=== PATIENT | male | born 1980 | race Caucasian/White ===

== ENCOUNTER 2016-11-12 17:01 | Emergency (ER) | payer OTHER ==
[~2016-11-12] VITALS: Ht 180.3 cm; Wt 77.1 kg
[2016-11-12] MEDS ORDERED: LIDOCAINE 2% 20 ML (XYLOCAINE) VIAL INJ ONE (17:30)
[2016-11-12] MEDS ORDERED: BUPIVACAINE 0.5% 30 ML (SENSORCAINE) VIAL INJ ONE (17:30)
[2016-11-12] MEDS ORDERED: TETANUS,DIPTH,PERTUSS P/F (BOOSTRIX) 0.5 ML VIAL IM ONE (17:30)
--- NOTE | 2016-11-12 17:30 | ED General ---
General Chief Complaint: Laceration Stated Complaint: LACERATION ON L HAND Nursing Triage Note: DISTAL FINGER LACERATION FROM BANDSAW. Nursing Sepsis Screen: No Definite Risk Source of Information: Patient Exam Limitations: No Limitations, Other History of Present Illness Time Seen by Provider: 17:24 Initial Comments 36-year-old male patient presents to the emergency department complains of a laceration to the left second finger. States the second left finger was crushed between a dull edge of a band saw and a piece of equipment. Denies a cut in the glove he was wearing. Location Injury Occurred: work Timing/Duration: 1-3 Hours, Constant Modifying Factors: worse with Movement Allergies and Home Medications Allergies Coded Allergies: No Known Drug Allergies (Unverified , 11/12/16) Home Medications Cephalexin 500 Mg Capsule, 500 MG PO TID, #15 Ref 0 Prescribed by: TANO POON on 11/12/161900 Hydrocodone/Acetaminophen 1 Each Tablet, 1 EACH PO Q4H PRN for PAIN, #20 Ref 0 Prescribed by: TANO POON on 11/12/161900 Constitutional: no symptoms reported Musculoskeletal: see HPI, joint pain, joint swelling Skin: see HPI Psychiatric/Neurological: Denies Numbness, Denies Paresthesia, Denies Tingling , Denies Weakness All Other Systems Reviewed Negative Unless Noted: Yes (Negative excepted noted.) Past Tnhvnfx-Zldcvf-Zociob Hx Patient Social History Alcohol Use: Denies Use Recreational Drug Use: No Smoking Status: Current Someday Smoker Type Used: Cigarettes 2nd Hand Smoke Exposure: Yes Recent Foreign Travel: No Contact w/Someone Who Travel: No Recent Infectious Disease Expo: No Immunizations Up To Date Tetanus Booster (TDap): Unknown Seasonal Allergies Seasonal Allergies: No Surgeries HX Surgeries: No Respiratory Hx Respiratory Disorders: No Cardiovascular Hx Cardiac Disorders: No Neurological Hx Neurological Disorders: No Musculoskeletal Hx Musculoskeletal Disorders: No Integumentary HX Skin/Integumentary Disorder: No Reviewed Nursing Assessment Reviewed/Agree w Nursing PMH: Yes Family Medical History Significant Family History: No Pertinent Family Hx Physical Exam Vital Signs Vital Sign - Last 12Hours 11/12/16 17:24 Temp 97.9 Pulse 89 Resp 18 B/P (MAP) 136/87 Pulse Ox 99 O2 Delivery Room Air Capillary Refill : Less Than 3 Seconds General Appearance: No Apparent Distress, WD/WN Cardiovascular: Normal Peripheral Pulses Extremity: Swelling (distal left 2nd finger. ), Other (3.5 cm partial avulsion of the distal 2nd finger. soft tissue tenderness noted. no active bleeding. dusky appearance of the wound edges on the distal lt 2nd finger ) Neurologic/Psychiatric: Alert, Oriented x3, No Motor/Sensory Deficits, Normal Mood/Affect Skin: Warm/Dry, Other (3.5 cm partial avulsion of the distal 2nd finger. soft tissue tenderness noted. no active bleeding. Dusky appearance of the wound edges on the distal lt 2nd finger ) Laceration Repair : Wound Location: Upper Extremities (left 2nd finger) Wound Length (cm): 3.5 Wound's Depth, Shape: flap (partial avulsion) Wound Explored: clean Betadine Prep?: Yes (and wound scrubbed with chlorhexadine and sterile water.) Suture: Prolene Suture Size: 4-0 Sterile Dressing Applied?: Yes Progress digital block performed using 2% lidocaine and 0.5% marcaine. Progress/Results/Core Measures Results/Orders My Orders Orders - TANO POON Finger(S) (11/12/16 17:16) Dipht,Pertuss(Acell),Tet Adult (Boostrix (11/12/16 17:30) Bupivacaine 0.5% Injection (Sensorcaine (11/12/16 17:30) Lidocaine 2% Injection 20 Ml (Xylocaine (11/12/16 17:30) Morphine Injection (Morphine Injection (11/12/16 17:34) Rx-Hydrocodone/Apap 5-325 Mg (Rx-Vicodin (11/12/16 19:45) Medications Given in ED Vital Signs/I&O Blood Pressure Mean: 103 Diagnostic Imaging Diagonstic Imaging: Xray Plain Films/CT/US/NM/MRI: hand Comments FINDINGS: Dressing material centered over the index finger consistent with a sizable soft tissue defect distally. This does limit assessment for potential foreign body. Definitive foreign body, however, does not appear to be present. The osseous structures of the index finger appear to be intact. Alignment anatomic. Remaining visualized osseous structures of the left hand intact. IMPRESSION: 1. Apparent large soft tissue defect of the left index finger. Definitive soft tissue foreign body or bony abnormality does not appear to be present. Dictated on workstation # [id number] Reviewed: Reviewed by Me (radiology report reviewed by me) Departure Communication Progress Notes Diagnostic findings discussed with the patient. I have discussed with the patient that the dusky appearance of the distal finger may impede healing and/ or necrose and slough due to loss of blood flow. I've advised him to follow-up with occupational health for wound recheck and to return to the ED for suture removal in 12-14 days. Patient voices understanding and agrees with the treatment plan. Impression Impression: Primary Impression: Avulsion of skin of finger without complication Qualified Codes: S61.209A - Unspecified open wound of unspecified finger without damage to nail, initial encounter Disposition: HOME, SELF-CARE Condition: Improved Departure-Patient Inst. Decision time for Depature: 18:59 Patient Instructions: Amputation of the Finger or Fingertip (DC), Laceration Repair With Stitches (DC) Add. Discharge Instructions: All discharge instructions reviewed with patient and/or family. Voiced understanding. Medications as instructed. Ibuprofen 800 mg by mouth every 8 hours as needed for pain. Elevate the left hand on pillows. Ice pack for 20 minute intervals as needed for pain. Tomorrow morning you may remove the bandage, shower with antibacterial soap, pat dry, apply triple antibody ointment twice daily for 3 days and cover with a Band-Aid. Finger splint as instructed. Return to the emergency department and 12 days for suture removal. Follow-up with occupational health as an outpatient for a recheck. Return to the emergency department for worsened pain, redness, fever, drainage, or any other concerns. Scripts Hydrocodone/Acetaminophen (Hydrocodon -Acetaminophen 5-325) 1 Each Tablet 1 EACH PO Q4H Y for PAIN, #20 TAB 0 Refills Prov: TANO POON 11/12/16 Cephalexin (Cephalexin) 500 Mg Capsule 500 MG PO TID, #15 CAP 0 Refills Prov: TANO POON 11/12/16 Work/School Note: Local [employer] Listing TANO POON Nov 12, 2016 17:30
[2016-11-12] MEDS ORDERED: morphine INJ 10 MG/ML 1ML (SYR OR VIAL) IM STA (17:34)
--- NOTE | 2016-11-12 17:49 | Diagnostic Imaging Report ---
INDICATION: Cut finger in saw. TECHNIQUE: Three views of the left hand/index finger 5:17 p.m. CORRELATION STUDY: None FINDINGS: Dressing material centered over the index finger consistent with a sizable soft tissue defect distally. This does limit assessment for potential foreign body. Definitive foreign body, however, does not appear to be present. The osseous structures of the index finger appear to be intact. Alignment anatomic. Remaining visualized osseous structures of the left hand intact. IMPRESSION: 1. Apparent large soft tissue defect of the left index finger. Definitive soft tissue foreign body or bony abnormality does not appear to be present. Dictated by: Dictated on workstation # [id number]
[2016-11-12] MEDS ORDERED: HYDR-3812 PO (19:01)
[2016-11-12] MEDS ORDERED: CEPH500C PO (19:01)
[2016-11-12] MEDS ORDERED: RX-HYDROCODONE/APAP 5/325 MG #4 TAB PK PO PRN (19:45)
[2016-11-12 19:48] VITALS: BP 137/91
== END 2016-11-12 19:47 | disposition home or self-care (01) ==
LOC: ER 17:04
DX: S61.211A Laceration without foreign body of left index finger without damage to nail, initial encounter (principal); Z23 Encounter for immunization; F17.210 Nicotine dependence, cigarettes, uncomplicated; W31.2XXA Contact with powered woodworking and forming machines, initial encounter; Y99.8 Other external cause status
CPT/HCPCS: 12041; 73140; 90471; 90715; 96372